=== PATIENT | female | born 1965 | race Caucasian/White ===

== ENCOUNTER → 2021-04-01 | Outpatient (CLI) | payer OTHER ==
[~2021-04-01] MED LIST: BUSPIRONE HCL7.5 MG PO; CARBIDOPA-LEVO1 EAC5 PO; ELIQUIS2.5 MG PO; GABAPENTIN800 MG PO; METFORMIN HCL850 MG PO; MONTELUKAST SOD10 MG PO; NAMENDA10 MG PO; PANTOPRAZOLE SO40 MG PO; PERCOCET 10-321 EACH PO; POTASSIUM PO; RANITIDINE HCL300 MG PO; SERTRALINE HCL25 MG PO; TOPIRAMATE50 MG PO
[2021-04-03 08:13] LABS: HBSAG SCREEN Negative (Negative); HCV AB <0.1 (0.0-0.9); HEP B CORE AB, TOT Negative (Negative); VITAMIN D, 25-HYDROXY 29.7 ng/mL (30.0-100.0)
[2021-04-03 09:13] LABS: RHEUMATOID ARTHRITIS FACTOR <10.0 IU/mL (0.0-13.9)
[2021-04-07 06:10] LABS: QUANTIFERON MITOGEN VALUE >10.00 IU/mL (.); QUANTIFERON NIL VALUE 0.05 IU/mL (.); QUANTIFERON TB1 AG VALUE 0.06 IU/mL (.); QUANTIFERON TB2 AG VALUE 0.06 IU/mL (.); QUANTIFERON-TB GOLD PLUS Negative (Negative)
== END ==
LOC: LAB 13:29
PROVIDERS: Nurse Practitioner Family
DX: D89.9 Disorder involving the immune mechanism, unspecified (principal); M25.50 Pain in unspecified joint; R76.8 Other specified abnormal immunological findings in serum; R53.83 Other fatigue; M79.10 Myalgia, unspecified site; Z79.899 Other long term (current) drug therapy; Z11.59 Encounter for screening for other viral diseases
CPT/HCPCS: 36415; 82550; 82728; 83520; 84439; 84443; 85652; 86140; 86200; 86431; 86704; 86803; 87340

== ENCOUNTER → 2021-10-29 | Outpatient (CLI) | payer OTHER | LOC: KOH-I 13:57 | DX: M16.11 Unilateral primary osteoarthritis, right hip (principal) | CPT/HCPCS: 73502 ==